=== PATIENT | male | born 1980 | race Two or more races ===

== ENCOUNTER 2024-09-09 22:58 | Emergency (ER) | payer BC ==
[~2024-09-09] VITALS: Ht 167.6 cm; Wt 72.3 kg
[2024-09-09 23:50] VITALS: BP 115/82; PULSE 74; RESP 18; TEMP 98.7; O2SAT 98
[2024-09-10] MEDS: DexAMETHasone SOD PHOS 10MG/1ML VIAL INJ IM ONE (01:02)
[2024-09-10] MEDS: KETOROLAC TROMETH 60MG/2ML VIAL IM ONE (01:03)
[2024-09-10] MEDS ORDERED: TIZA4TAB9 PO (01:32)
[2024-09-10] MEDS ORDERED: METH4PAK PO (01:32)
== END 2024-09-10 02:39 | disposition home or self-care (01) ==
LOC: ER 22:58
DX: S39.012A Strain of muscle, fascia and tendon of lower back, initial encounter (principal); V89.2XXA Person injured in unspecified motor-vehicle accident, traffic, initial encounter; Y93.89 Activity, other specified; Y92.89 Other specified places as the place of occurrence of the external cause; Y99.8 Other external cause status
CPT/HCPCS: 72070; 72100; 73030; 96372; 99284; J1100; J1885